=== PATIENT | female | born 1980 | race Caucasian/White ===

== ENCOUNTER 2017-07-07 15:05 | Emergency (ER) | payer OTHER ==
[~2017-07-07] VITALS: Ht 157.5 cm; Wt 117.9 kg
[2017-07-07] MEDS ORDERED: SYNTHROID50 MCG PO (15:33)
[2017-07-07] MEDS ORDERED: ZANTAC300 MG PO (15:33)
[2017-07-07] MEDS ORDERED: SINGULAIR10 MG PO (15:33)
== END 2017-07-07 20:18 | disposition home or self-care (01) ==
LOC: ER 15:05
DX: J45.998 Other asthma (principal)

== ENCOUNTER 2017-09-02 21:37 | Emergency (ER) | payer OTHER ==
[~2017-09-02] VITALS: Ht 157.5 cm; Wt 117.9 kg
[~2017-09-02 21:37] MED LIST: SINGULAIR10 MG PO; SYNTHROID50 MCG PO; ZANTAC300 MG PO
== END 2017-09-02 22:52 | disposition home or self-care (01) ==
LOC: ER 21:37
DX: H10.32 Unspecified acute conjunctivitis, left eye (principal)

== ENCOUNTER 2018-01-07 22:22 | Emergency (ER) | payer OTHER ==
[~2018-01-07] VITALS: Ht 157.5 cm; Wt 127.0 kg
== END 2018-01-07 22:58 | disposition home or self-care (01) ==
LOC: ER 22:22
DX: M54.5 Low back pain (principal)

== ENCOUNTER 2019-05-19 14:27 | Emergency (ER) | payer OTHER ==
[~2019-05-19] VITALS: Ht 157.5 cm; Wt 120.7 kg
[2019-05-19] MEDS ORDERED: DOLOGEN CAPLET1 EACH PO (19:07)
[2019-05-19] MEDS ORDERED: TUSNEL LIQUID178 ML PO (19:07)
[2019-05-19] MEDS ORDERED: OSEL75CA PO (19:07)
== END 2019-05-19 19:15 | disposition home or self-care (01) ==
LOC: ER 14:27
DX: J11.1 Influenza due to unidentified influenza virus with other respiratory manifestations (principal); B34.9 Viral infection, unspecified

== ENCOUNTER 2022-01-03 07:47 | Emergency (ER) | payer OTHER ==
[~2022-01-03] VITALS: Ht 157.5 cm; Wt 123.4 kg
[~2022-01-03 07:47] MED LIST changes: +DOLOGEN CAPLET1 EACH PO; +OSEL75CA PO; +TUSNEL LIQUID178 ML PO
[2022-01-03] MEDS ORDERED: SINUS RINSE ST1 EACH NS (11:11)
[2022-01-03] MEDS ORDERED: FLONASE ALLERG9.9 ML NASAL (11:11)
== END 2022-01-03 11:21 | disposition home or self-care (01) ==
LOC: ER 07:47
DX: J00 Acute nasopharyngitis [common cold] (principal); Z20.822 Contact with and (suspected) exposure to COVID-19; Z91.013 Allergy to seafood

== ENCOUNTER 2022-03-09 06:49 | Outpatient (CLI) | payer OTHER ==
[~2022-03-09 06:49] MED LIST changes: +FLONASE ALLERG9.9 ML NASAL; +SINUS RINSE ST1 EACH NS
== END 2022-03-09 06:50 | disposition home or self-care (01) ==
LOC: LAB 06:49
DX: D50.0 Iron deficiency anemia secondary to blood loss (chronic) (principal); D50.8 Other iron deficiency anemias; N93.9 Abnormal uterine and vaginal bleeding, unspecified

== ENCOUNTER 2023-01-16 08:26 | Outpatient (CLI) | payer OTHER | END 2023-01-16 08:29 | disposition home or self-care (01) | LOC: MAMO-SONO 08:26 | PROVIDERS: ATTEND Obstetrics & Gynecology | DX: N60.11 Diffuse cystic mastopathy of right breast (principal); N60.12 Diffuse cystic mastopathy of left breast; R10.2 Pelvic and perineal pain; N93.8 Other specified abnormal uterine and vaginal bleeding; Z12.31 Encounter for screening mammogram for malignant neoplasm of breast ==

== ENCOUNTER 2023-05-17 06:06 | Outpatient (CLI) | payer OTHER ==
[~2023-05-17 06:06] MED LIST changes: +OMEPRAZOLE20 MG
[2023-05-17 07:59] LABS: HEMOGLOBIN 9.1 g/dL (12.0-15.00); MEAN CORPUSCULAR HEMOGLOBIN 20.2 pg (27.00-32.0); MEAN CORPUSCULAR HGB CONC 31.3 g/dl (32.0-36.0); PLATELET COUNT 398 K/uL (150-450); RED BLOOD COUNT 4.49 M/uL (4.00-6.00); RED CELL DISTRIBUTION WIDTH 17.7 % (11.5-14.5)
[2023-05-17 08:09] LABS: MEAN CELL VOLUME 64.6 fL (80.00-100.00)
[2023-05-17 08:54] LABS: ALBUMIN 3.4 gm/dL (3.4-5.0); BILIRUBIN TOTAL 0.5 mg/dL (0.3-1.2); CALCIUM 9.1 mg/dL (8.5-10.1); CHOL HDL RATIO 3.8 (0-5.0); CREATININE SERUM 0.65 mg/dL (0.55-1.02); GFR 99.96; GLOBULINA 3.7 G/DL (2.4-3.5); POTASSIUM 4.15 mEq/L (3.5-5.1); TOTAL PROTEIN 7.1 gm/dL (6.4-8.2); TSH 4.61 uIU/mL (0.358-3.74)
[2023-05-17 08:58] LABS: FERRITIN 3.7 NG/ML (8-252)
[2023-05-17 09:33] LABS: PH,URINE 5.5 (5.0-8.0); URINE APPEARANCE Clear; URINE BILIRRUBIN Negative (NEGATIVE); URINE BLOOD Large; URINE COLOR Yellow; URINE GLUCOSE Negative (NEGATIVE); URINE LEUKOCYTE Negative; URINE NITRATE Negative; URINE PROTEIN Negative (NEGATIVE); URINE UROBILINOGEN 0.2 E.U./dl
[2023-05-17 09:38] LABS: URINE BACTERIA 115.8 uL (0.0-1933); URINE RBC 236.2 uL (0.0-20.8); URINE WBC 4.6 uL (0.0-23.2)
== END 2023-05-17 13:36 | disposition home or self-care (01) ==
LOC: LAB 06:06
DX: D64.9 Anemia, unspecified (principal); R53.1 Weakness; E03.9 Hypothyroidism, unspecified; E78.9 Disorder of lipoprotein metabolism, unspecified; N39.0 Urinary tract infection, site not specified; I10 Essential (primary) hypertension

== ENCOUNTER 2023-05-22 08:56 | Emergency (ER) | payer OTHER ==
[~2023-05-22] VITALS: Ht 157.5 cm; Wt 122.5 kg
[2023-05-22 10:35] LABS: HEMATOCRIT 28.6 % (36.0-45.00); MEAN CORPUSCULAR HEMOGLOBIN 20.5 pg (27.00-32.0); MEAN CORPUSCULAR HGB CONC 31.4 g/dl (32.0-36.0); PLATELET COUNT 404 K/uL (150-450); RED BLOOD COUNT 4.37 M/uL (4.00-6.00)
[2023-05-22 10:36] LABS: MEAN CELL VOLUME 65.4 fL (80.00-100.00)
== END 2023-05-22 12:48 | disposition home or self-care (01) ==
LOC: ER 08:56
PROVIDERS: General Practice
DX: J00 Acute nasopharyngitis [common cold] (principal); Z20.822 Contact with and (suspected) exposure to COVID-19

== ENCOUNTER 2023-05-29 06:53 | Emergency (ER) | payer OTHER ==
[~2023-05-29] VITALS: Ht 157.5 cm; Wt 123.4 kg
[2023-05-29] MEDS ORDERED: 0.9 % SODIUM CHLORIDE 1,000 ML IV STA (08:39)
[2023-05-29 09:18] LABS: PH,URINE 5.5 (5.0-8.0); URINE APPEARANCE Clear; URINE BILIRRUBIN Negative (NEGATIVE); URINE BLOOD Negative; URINE COLOR Yellow; URINE GLUCOSE Negative (NEGATIVE); URINE LEUKOCYTE Negative; URINE NITRATE Negative; URINE PROTEIN Negative (NEGATIVE); URINE UROBILINOGEN 0.2 E.U./dl
[2023-05-29 09:23] LABS: URINE BACTERIA 715.6 uL (0.0-1933); URINE EPITHELIAL CELLS 23.7 uL (0.0-38.8); URINE RBC 4.3 uL (0.0-20.8); URINE WBC 5.8 uL (0.0-23.2)
[2023-05-29 09:46] LABS: HEMOGLOBIN 10.5 g/dL (12.0-15.00); MEAN CORPUSCULAR HEMOGLOBIN 20.3 pg (27.00-32.0); MEAN CORPUSCULAR HGB CONC 30.9 g/dl (32.0-36.0); PLATELET COUNT 385 K/uL (150-450); RED BLOOD COUNT 5.19 M/uL (4.00-6.00); RED CELL DISTRIBUTION WIDTH 18.2 % (11.5-14.5)
[2023-05-29 09:50] LABS: MEAN CELL VOLUME 65.6 fL (80.00-100.00)
[2023-05-29 10:18] LABS: CALCIUM 9.4 mg/dL (8.5-10.1); CREATININE SERUM 0.66 mg/dL (0.55-1.02); GFR 98.21; POTASSIUM 4.42 mEq/L (3.5-5.1)
== END 2023-05-29 13:41 | disposition home or self-care (01) ==
LOC: ER 06:53
PROVIDERS: General Practice
DX: K52.89 Other specified noninfective gastroenteritis and colitis (principal); E03.9 Hypothyroidism, unspecified; Z91.013 Allergy to seafood

== ENCOUNTER 2023-07-03 10:05 | Outpatient (CLI) | payer OTHER | END 2023-07-03 11:02 | disposition home or self-care (01) | LOC: SONOGRAMA 10:05 | DX: R10.2 Pelvic and perineal pain (principal); D25.9 Leiomyoma of uterus, unspecified ==

== ENCOUNTER 2023-10-09 05:30 | Day surgery (SDC) | payer OTHER ==
[2023-10-02 08:18] LABS: HEMATOCRIT 38.1 % (36.0-45.00); HEMOGLOBIN 12.6 g/dL (12.0-15.00); MEAN CELL VOLUME 81.2 fL (80.00-100.00); MEAN CORPUSCULAR HEMOGLOBIN 26.9 pg (27.00-32.0); MEAN CORPUSCULAR HGB CONC 33.2 g/dl (32.0-36.0); PLATELET COUNT 280 K/uL (150-450); RED BLOOD COUNT 4.69 M/uL (4.00-6.00)
[2023-10-02 08:47] LABS: RED CELL DISTRIBUTION WIDTH 16.2 % (11.5-14.5)
[2023-10-02 09:10] LABS: INR 1.01; PARTIAL THROMBOPLASTIN TIME 27.7 SECONDS (22.0-34.0); PROTHROMBIN TIME 10.6 SECONDS (9.0-11.5)
[2023-10-02 09:22] LABS: URINE APPEARANCE Cloudy; URINE BILIRRUBIN Negative (NEGATIVE); URINE BLOOD Trace; URINE COLOR Yellow; URINE GLUCOSE Negative (NEGATIVE); URINE LEUKOCYTE Negative; URINE NITRATE Negative; URINE PROTEIN Trace (NEGATIVE); URINE UROBILINOGEN 0.2 E.U./dl
[2023-10-02 09:27] LABS: URINE BACTERIA 4470.2 uL (0.0-1933); URINE EPITHELIAL CELLS 110.4 uL (0.0-38.8)
[2023-10-02 09:27] LABS: ALBUMIN 3.5 gm/dL (3.4-5.0); BILIRUBIN TOTAL 0.62 mg/dL (0.3-1.2); CALCIUM 8.8 mg/dL (8.5-10.1); CREATININE SERUM 0.61 mg/dL (0.55-1.02); GFR 107.56; GLOBULINA 3.6 G/DL (2.4-3.5); POTASSIUM 4.25 mEq/L (3.5-5.1); TOTAL PROTEIN 7.1 gm/dL (6.4-8.2)
[~2023-10-09] VITALS: Ht 157.5 cm; Wt 127.0 kg
[2023-10-09] MEDS ORDERED: POVIDONE-IODINE 118 ML BOTT TOP ONE (08:30)
[2023-10-09] MEDS ORDERED: CEFAZOLIN SODIUM 1,000 MG VIAL IV ONE (08:30)
[2023-10-09] MEDS ORDERED: KETOROLAC TROMETHAMINE 30 MG VIAL IV ONE (08:45)
[2023-10-09] MEDS ORDERED: RINGERS SOLUTION,LACTATED 1,000 ML IV SCH (08:45)
[2023-10-09] MEDS ORDERED: MORPHINE SULFATE 4 MG/ML VIAL IV PRN (09:00)
[2023-10-09] MEDS ORDERED: FAMOTIDINE/PF 20 MG/2 ML VIAL IV ONE (09:00)
[2023-10-09] MEDS ORDERED: ONDANSETRON HCL 2 MG/ML VIAL IV PRN (09:00)
== END 2023-10-09 12:30 | disposition home or self-care (01) ==
LOC: CIR.AMB 05:30
PROVIDERS: ATTEND General Practice
DX: N85.00 Endometrial hyperplasia, unspecified (principal); N93.8 Other specified abnormal uterine and vaginal bleeding; Z91.013 Allergy to seafood; J45.909 Unspecified asthma, uncomplicated; E03.9 Hypothyroidism, unspecified; D64.9 Anemia, unspecified; K29.70 Gastritis, unspecified, without bleeding

== ENCOUNTER 2023-10-11 10:42 | Emergency (ER) | payer OTHER ==
[~2023-10-11] VITALS: Ht 157.5 cm; Wt 127.0 kg
[2023-10-11] MEDS ORDERED: ACID REDUCER20 M1 (10:48)
[2023-10-11] MEDS ORDERED: DEXAMETHASONE SODIUM PHOSPHATE 4 MG/ML VIAL IM STA (11:18)
[2023-10-11] MEDS ORDERED: ACETAMINOPHEN 500 MG GEL..CAP PO STA (11:18)
[2023-10-11] MEDS ORDERED: KETOROLAC TROMETHAMINE 15 MG VIAL IM STA (11:18)
[2023-10-11] MEDS ORDERED: DIPHENHYDRAMINE HCL 50 MG/ML VIAL 1ML IM STA (11:18)
[2023-10-11] MEDS ORDERED: 0.9 % SODIUM CHLORIDE 500 ML IV STA (11:19)
[2023-10-11] MEDS ORDERED: KETOROLAC TROMETHAMINE 30 MG VIAL ONE (11:41)
[2023-10-11] MEDS ORDERED: ACETAMINOPHEN 500 MG GEL..CAP PO ONE (11:42)
[2023-10-11] MEDS ORDERED: DIPHENHYDRAMINE HCL 50 MG/ML VIAL 1ML ONE (11:42)
[2023-10-11] MEDS ORDERED: DEXAMETHASONE SODIUM PHOSPHATE 4 MG/ML VIAL ONE ×2 (11:42→12:11)
[2023-10-11 12:21] LABS: HEMATOCRIT 38.6 % (36.0-45.00); HEMOGLOBIN 12.7 g/dL (12.0-15.00); MEAN CELL VOLUME 81.6 fL (80.00-100.00); MEAN CORPUSCULAR HEMOGLOBIN 26.9 pg (27.00-32.0); PLATELET COUNT 275 K/uL (150-450); RED BLOOD COUNT 4.74 M/uL (4.00-6.00); RED CELL DISTRIBUTION WIDTH 15.7 % (11.5-14.5)
[2023-10-11 12:38] LABS: CALCIUM 9.1 mg/dL (8.5-10.1); CREATININE SERUM 0.7 mg/dL (0.55-1.02); GFR 91.76; POTASSIUM 3.62 mEq/L (3.5-5.1)
[2023-10-11 13:04] LABS: PH,URINE 7.5 (5.0-8.0); URINE APPEARANCE Clear; URINE BILIRRUBIN Negative (NEGATIVE); URINE BLOOD Negative; URINE COLOR Yellow; URINE GLUCOSE Negative (NEGATIVE); URINE LEUKOCYTE Negative; URINE NITRATE Negative; URINE PROTEIN Negative (NEGATIVE); URINE UROBILINOGEN 0.2 E.U./dl
[2023-10-11 13:05] LABS: URINE BACTERIA 350.2 uL (0.0-1933); URINE EPITHELIAL CELLS 9.7 uL (0.0-38.8); URINE RBC 3.2 uL (0.0-20.8); URINE WBC 7.4 uL (0.0-23.2)
[2023-10-11] MEDS ORDERED: MEDROLPACK PO (13:15)
[2023-10-11] MEDS ORDERED: CYCLOBENZAPRINE5 MG PO (13:15)
[2023-10-11] MEDS ORDERED: DICLOFENAC POTA50 MG PO (13:15)
[2023-10-11] MEDS ORDERED: 8 HOUR650 MG PO (13:15)
== END 2023-10-11 14:53 | disposition home or self-care (01) ==
LOC: ER 10:43
PROVIDERS: General Practice
DX: R51.9 Headache, unspecified (principal); E03.9 Hypothyroidism, unspecified; Z87.09 Personal history of other diseases of the respiratory system; Z91.013 Allergy to seafood

== ENCOUNTER 2023-11-13 13:22 | Emergency (ER) | payer OTHER ==
[~2023-11-13] VITALS: Ht 157.5 cm; Wt 127.0 kg
[~2023-11-13 13:22] MED LIST changes: +8 HOUR650 MG PO; +ACID REDUCER20 M1; +CYCLOBENZAPRINE5 MG PO; +DICLOFENAC POTA50 MG PO; +MEDROLPACK PO
[2023-11-13] MEDS ORDERED: KETOROLAC TROMETHAMINE 60 MG VIAL IM ONE ×2 (14:30)
[2023-11-13 14:50] LABS: HEMATOCRIT 37.2 % (36.0-45.00); HEMOGLOBIN 12.3 g/dL (12.0-15.00); MEAN CELL VOLUME 81.5 fL (80.00-100.00); MEAN CORPUSCULAR HGB CONC 33.1 g/dl (32.0-36.0); PLATELET COUNT 336 K/uL (150-450); RED BLOOD COUNT 4.57 M/uL (4.00-6.00); RED CELL DISTRIBUTION WIDTH 15.9 % (11.5-14.5)
[2023-11-13 15:09] LABS: CALCIUM 9.6 mg/dL (8.5-10.1); CREATININE SERUM 0.86 mg/dL (0.55-1.02); GFR 72.02; POTASSIUM 4.19 mEq/L (3.5-5.1)
== END 2023-11-13 21:34 | disposition home or self-care (01) ==
LOC: ER 13:23
PROVIDERS: General Practice
DX: N93.9 Abnormal uterine and vaginal bleeding, unspecified (principal); E03.8 Other specified hypothyroidism; Z91.013 Allergy to seafood

== ENCOUNTER → 2024-01-07 06:14 | Outpatient (CLI) | payer OTHER ==
[2024-01-07 07:00] LABS: HEMATOCRIT 32.6 % (36.0-45.00); HEMOGLOBIN 10.9 g/dL (12.0-15.00); MEAN CELL VOLUME 79.2 fL (80.00-100.00); MEAN CORPUSCULAR HEMOGLOBIN 26.4 pg (27.00-32.0); MEAN CORPUSCULAR HGB CONC 33.3 g/dl (32.0-36.0); PLATELET COUNT 331 K/uL (150-450); RED BLOOD COUNT 4.12 M/uL (4.00-6.00); RED CELL DISTRIBUTION WIDTH 14.6 % (11.5-14.5)
[2024-01-07 08:12] LABS: FERRITIN 5.8 NG/ML (8-252)
== END | disposition home or self-care (01) ==
LOC: LAB 06:14
PROVIDERS: ATTEND Obstetrics & Gynecology
DX: D64.9 Anemia, unspecified (principal); E03.8 Other specified hypothyroidism; N95.1 Menopausal and female climacteric states; I10 Essential (primary) hypertension; C51.9 Malignant neoplasm of vulva, unspecified; N30.00 Acute cystitis without hematuria; E83.51 Hypocalcemia; A64 Unspecified sexually transmitted disease; N39.0 Urinary tract infection, site not specified; R97.8 Other abnormal tumor markers; R79.89 Other specified abnormal findings of blood chemistry; E55.9 Vitamin D deficiency, unspecified; A60.9 Anogenital herpesviral infection, unspecified; Z12.11 Encounter for screening for malignant neoplasm of colon

== ENCOUNTER 2024-01-14 14:11 | Outpatient (CLI) | payer OTHER | END 2024-01-14 14:14 | disposition home or self-care (01) | LOC: SONOGRAMA 14:11 | PROVIDERS: ATTEND Obstetrics & Gynecology | DX: R10.2 Pelvic and perineal pain (principal) ==

== ENCOUNTER 2024-01-31 09:00 | Inpatient (IN) | payer OTHER ==
[~2024-01-31] VITALS: Ht 157.5 cm; Wt 129.7 kg
[2024-01-31 07:15] LABS: HEMATOCRIT 36.5 % (36.0-45.00); HEMOGLOBIN 11.9 g/dL (12.0-15.00); MEAN CELL VOLUME 78.9 fL (80.00-100.00); MEAN CORPUSCULAR HEMOGLOBIN 25.9 pg (27.00-32.0); MEAN CORPUSCULAR HGB CONC 32.8 g/dl (32.0-36.0); PLATELET COUNT 323 K/uL (150-450); RED BLOOD COUNT 4.62 M/uL (4.00-6.00); RED CELL DISTRIBUTION WIDTH 15.6 % (11.5-14.5)
[2024-01-31 07:22] VITALS: BP 145/81
[2024-01-31 07:58] LABS: ALBUMIN 3.6 gm/dL (3.4-5.0); BILIRUBIN TOTAL 0.39 mg/dL (0.3-1.2); CALCIUM 9.3 mg/dL (8.5-10.1); CREATININE SERUM 0.76 mg/dL (0.55-1.02); GFR 83.06; GLOBULINA 3.7 G/DL (2.4-3.5); POTASSIUM 3.91 mEq/L (3.5-5.1); TOTAL PROTEIN 7.3 gm/dL (6.4-8.2)
[2024-01-31 08:26] LABS: INR 1.02; PARTIAL THROMBOPLASTIN TIME 26.8 SECONDS (22.0-34.0); PROTHROMBIN TIME 11.1 SECONDS (9.0-11.5)
[2024-01-31 08:53] LABS: RH POSITIVE
[2024-02-04] MEDS ORDERED: CEFAZOLIN SODIUM 1,000 MG VIAL IV ONE (13:30)
[2024-02-04] MEDS ORDERED: SODIUM CHLORIDE 0.45 % 1,000 ML IV SCH (15:30)
[2024-02-04] MEDS ORDERED: ONDANSETRON HCL 2 MG/ML VIAL IV PRN (15:30)
[2024-02-04] MEDS ORDERED: MORPHINE SULFATE 2 MG/ML CARTRIDGE IV PRN (15:30)
[2024-02-04] MEDS ORDERED: MORPHINE SULFATE 4 MG/ML CARTRIDGE IV PRN (15:30)
[2024-02-04] MEDS ORDERED: MORPHINE SULFATE 4 MG/ML VIAL IV ONE (16:15)
[2024-02-04 17:28] VITALS: BP 145/81
[2024-02-04] MEDS ORDERED: KETOROLAC TROMETHAMINE 30 MG VIAL IV SCH (19:00)
[2024-02-04] MEDS ORDERED: FAMOTIDINE/PF 20 MG/2 ML VIAL IV PUSH SCH (21:00)
[2024-02-05] VITALS: BP 105/70
[2024-02-05 07:16] LABS: HEMATOCRIT 31.5 % (36.0-45.00); HEMOGLOBIN 10.2 g/dL (12.0-15.00); MEAN CELL VOLUME 81.3 fL (80.00-100.00); MEAN CORPUSCULAR HEMOGLOBIN 26.4 pg (27.00-32.0); MEAN CORPUSCULAR HGB CONC 32.5 g/dl (32.0-36.0); PLATELET COUNT 253 K/uL (150-450); RED BLOOD COUNT 3.87 M/uL (4.00-6.00); RED CELL DISTRIBUTION WIDTH 16.2 % (11.5-14.5)
[2024-02-05 08:50] VITALS: BP 131/62
[2024-02-05] MEDS ORDERED: ENOXAPARIN SODIUM 40 MG/0.4 ML SYRINGE SUBCUTANEO SCH (09:00)
[2024-02-05] MEDS ORDERED: ACETAMINOPHEN 500 MG GEL..CAP PO PRN (11:00)
[2024-02-05] MEDS ORDERED: CLONAZEPAM 0.5 MG TABLET PO SCH (11:00)
[2024-02-05 13:23] VITALS: BP 127/70
[2024-02-05 16:00] VITALS: BP 132/80
[2024-02-05] MEDS ORDERED: IRON/V.C/V.B12/FOLIC A/VIT. E 1 CAPL CAPLET PO NR (16:01)
[2024-02-05] MEDS ORDERED: IBUprofen 800 MG TABLET PO SCH (17:15)
[2024-02-05] MEDS ORDERED: OxyCODONE HCL/APAP UD (PERCOCET) PO PRN (17:15)
[2024-02-05] MEDS ORDERED: PHENOL 177 ML BOTTLE MM SCH (18:45)
[2024-02-06 00:54] VITALS: BP 124/81
[2024-02-06 08:21] VITALS: BP 132/83
[2024-02-06] MEDS ORDERED: IRON/V.C/V.B12/FOLIC A/VIT. E 1 CAPL CAPLET PO SCH (09:00)
[2024-02-06] MEDS ORDERED: PHENOL 177 ML BOTTLE MM SCH (09:00)
[2024-02-06 13:39] VITALS: BP 140/80
[2024-02-06 16:00] VITALS: BP 124/78
== END 2024-02-06 18:20 | disposition home or self-care (01) | DRG 743 ==
LOC: O/R 02-04 06:21 → OB/GYN 02-04 06:21 → SURH 02-04 09:00 → OB/GYN 02-04 15:49
PROVIDERS: ADMIT Obstetrics & Gynecology; ATTEND Obstetrics & Gynecology
PROC: 0UT70ZZ Resection of Bilateral Fallopian Tubes, Open Approach (ICD-10-PCS; 2024-02-04)
PROC: 0UT90ZZ Resection of Uterus, Open Approach (ICD-10-PCS; principal; 2024-02-04 09:15)
DX: D25.1 Intramural leiomyoma of uterus (principal); D25.2 Subserosal leiomyoma of uterus; N72 Inflammatory disease of cervix uteri; Z20.822 Contact with and (suspected) exposure to COVID-19; D50.0 Iron deficiency anemia secondary to blood loss (chronic)

== ENCOUNTER 2024-03-11 06:58 | Outpatient (CLI) | payer OTHER ==
[2024-03-11 07:53] LABS: HEMATOCRIT 36.5 % (36.0-45.00); HEMOGLOBIN 11.9 g/dL (12.0-15.00); MEAN CELL VOLUME 78.7 fL (80.00-100.00); MEAN CORPUSCULAR HEMOGLOBIN 25.7 pg (27.00-32.0); MEAN CORPUSCULAR HGB CONC 32.6 g/dl (32.0-36.0); PLATELET COUNT 304 K/uL (150-450); RED BLOOD COUNT 4.63 M/uL (4.00-6.00); RED CELL DISTRIBUTION WIDTH 16.9 % (11.5-14.5)
[2024-03-11 09:00] LABS: T4 FREE 0.88 NG/ML (0.76-1.46); TSH 4.35 uIU/mL (0.358-3.74)
[2024-03-12 06:04] LABS: ESTRADIOL SERUM 88.9 pg/mL (.); FOLLICLE STIMULATING HORMONE 6.2 mIU/mL (.)
== END 2024-03-11 07:45 | disposition home or self-care (01) ==
LOC: LAB 06:58
PROVIDERS: ATTEND Obstetrics & Gynecology
DX: D64.9 Anemia, unspecified (principal); Z12.11 Encounter for screening for malignant neoplasm of colon; E03.8 Other specified hypothyroidism; N95.1 Menopausal and female climacteric states; I10 Essential (primary) hypertension; C51.9 Malignant neoplasm of vulva, unspecified; N30.00 Acute cystitis without hematuria; E83.51 Hypocalcemia; A64 Unspecified sexually transmitted disease; N39.0 Urinary tract infection, site not specified; R97.8 Other abnormal tumor markers; E55.9 Vitamin D deficiency, unspecified; A60.9 Anogenital herpesviral infection, unspecified

== ENCOUNTER 2024-04-23 12:18 | Outpatient (CLI) | payer OTHER | END 2024-04-23 12:21 | disposition home or self-care (01) | LOC: MAMO-SONO 12:18 | PROVIDERS: ATTEND Obstetrics & Gynecology | DX: N64.89 Other specified disorders of breast (principal) ==

== ENCOUNTER 2024-04-29 14:44 | Outpatient (CLI) | payer OTHER | END 2024-04-29 14:49 | disposition home or self-care (01) | LOC: SONOGRAMA 14:44 | DX: E03.8 Other specified hypothyroidism (principal) ==

== ENCOUNTER 2024-05-21 07:57 | Outpatient (CLI) | payer OTHER ==
[2024-05-21 08:35] LABS: HEMATOCRIT 37.2 % (36.0-45.00); HEMOGLOBIN 12.4 g/dL (12.0-15.00); MEAN CELL VOLUME 76.4 fL (80.00-100.00); MEAN CORPUSCULAR HEMOGLOBIN 25.4 pg (27.00-32.0); MEAN CORPUSCULAR HGB CONC 33.3 g/dl (32.0-36.0); PLATELET COUNT 319 K/uL (150-450); RED BLOOD COUNT 4.87 M/uL (4.00-6.00); RED CELL DISTRIBUTION WIDTH 16.6 % (11.5-14.5)
== END 2024-05-21 08:37 | disposition home or self-care (01) ==
LOC: LAB 07:57
DX: E03.9 Hypothyroidism, unspecified (principal); D64.9 Anemia, unspecified

== ENCOUNTER 2024-06-28 20:47 | Emergency (ER) | payer OTHER ==
[~2024-06-28] VITALS: Ht 157.5 cm; Wt 128.4 kg
[2024-06-28] MEDS ORDERED: SINGULAIR10 MG PO (21:33)
[2024-06-28] MEDS ORDERED: IPRATROPIUM/ALBUTEROL SULFATE 3 ML AMPUL.NEB IH SCH (22:30)
[2024-06-28] MEDS ORDERED: GUAIFENESIN/DEXTROMETHORPHAN 100MG/10ML BLIST.PACK PO ONE ×2 (22:30→22:35)
[2024-06-28] MEDS ORDERED: ACETAMINOPHEN 500 MG GEL..CAP PO ONE ×2 (22:30→22:35)
[2024-06-28 23:19] LABS: HEMOGLOBIN 12.3 g/dL (12.0-15.00); MEAN CELL VOLUME 79.3 fL (80.00-100.00); MEAN CORPUSCULAR HEMOGLOBIN 25.7 pg (27.00-32.0); MEAN CORPUSCULAR HGB CONC 32.4 g/dl (32.0-36.0); PLATELET COUNT 275 K/uL (150-450); RED BLOOD COUNT 4.79 M/uL (4.00-6.00); RED CELL DISTRIBUTION WIDTH 17.9 % (11.5-14.5)
[2024-06-28] MEDS ORDERED: ZITHROMAX TRI-500 MG PO (23:35)
[2024-06-28] MEDS ORDERED: GILTUSS COUGH-118 M1 PO (23:35)
[2024-06-28] MEDS ORDERED: ACETAMINOPHEN500 M1 PO (23:35)
[2024-06-28] MEDS ORDERED: IPRATROPIUM/ALBUTEROL SULFATE 3 ML AMPUL.NEB IH ONE (23:54)
== END 2024-06-29 01:07 | disposition home or self-care (01) ==
LOC: ER 20:48
PROVIDERS: Preventive Medicine Public Health & General Preventive Medicine
DX: R53.81 Other malaise (principal); J06.9 Acute upper respiratory infection, unspecified; Z20.822 Contact with and (suspected) exposure to COVID-19; E03.8 Other specified hypothyroidism; Z91.013 Allergy to seafood

== ENCOUNTER → 2024-09-23 | Outpatient (CLI) | payer OTHER ==
[~2024-09-23] MED LIST changes: +ACETAMINOPHEN500 M1 PO; +GILTUSS COUGH-118 M1 PO; +ZITHROMAX TRI-500 MG PO
[2024-09-23 08:15] LABS: ALT/SGPT 23.0 U/L (12-78); AST/SGOT 19.0 U/L (15-37); BILIRUBIN TOTAL 0.46 mg/dL (0.3-1.2); BUN CREA RATIO 24.0 (7.0-25.0); CREATININE SERUM 0.72 mg/dL (0.55-1.02); GFR 88.41; GLOBULINA 3.9 G/DL (2.4-3.5); GLUCOSE FASTING 96.0 mg/dL (65-100); OSMOLALITY SERUM 283.0 MOSM/KG (275-295); T4 FREE 1.01 NG/ML (0.76-1.46); TSH 1.83 uIU/mL (0.358-3.74)
== END | disposition home or self-care (01) ==
LOC: LAB 07:00
PROVIDERS: ATTEND Obstetrics & Gynecology
DX: E03.8 Other specified hypothyroidism (principal); D64.9 Anemia, unspecified; Z12.11 Encounter for screening for malignant neoplasm of colon; N95.1 Menopausal and female climacteric states; I10 Essential (primary) hypertension; C51.9 Malignant neoplasm of vulva, unspecified; A64 Unspecified sexually transmitted disease; N39.0 Urinary tract infection, site not specified; R79.89 Other specified abnormal findings of blood chemistry; E55.9 Vitamin D deficiency, unspecified; A60.9 Anogenital herpesviral infection, unspecified

== ENCOUNTER 2024-09-25 08:37 | Outpatient (CLI) | payer OTHER | END 2024-09-25 08:46 | disposition home or self-care (01) | LOC: TOM 08:37 | PROVIDERS: ATTEND Obstetrics & Gynecology | DX: R10.2 Pelvic and perineal pain (principal); R10.9 Unspecified abdominal pain ==

== ENCOUNTER → 2025-01-09 | Outpatient (CLI) | payer OTHER | END | disposition home or self-care (01) | LOC: RAD 10:44 | DX: M25.562 Pain in left knee (principal); M54.50 Low back pain, unspecified ==

== ENCOUNTER 2025-02-24 18:27 | Emergency (ER) | payer OTHER ==
[~2025-02-24] VITALS: Ht 157.5 cm; Wt 126.1 kg
[2025-02-24 18:57] VITALS: BP 131/80; O2SAT 100
[2025-02-24] MEDS ORDERED: PROTONIX20 MG (18:57)
[2025-02-24] MEDS ORDERED: ZEPBOUND2.5 MG/0.5 (18:57)
[2025-02-24] MEDS ORDERED: DEXAMETHASONE SODIUM PHOSPHATE 4 MG/ML VIAL IV STA (19:15)
[2025-02-24] MEDS ORDERED: ORPHENADRINE CITRATE 30 MG/ML AMPUL IM STA (19:16)
[2025-02-24] MEDS ORDERED: KETOROLAC TROMETHAMINE 30 MG VIAL IM STA (19:16)
[2025-02-24] MEDS ORDERED: KETOROLAC TROMETHAMINE 30 MG VIAL ONE (20:29)
[2025-02-24] MEDS ORDERED: ORPHENADRINE CITRATE 30 MG/ML AMPUL ONE (20:29)
[2025-02-24] MEDS ORDERED: DEXAMETHASONE SODIUM PHOSPHATE 4 MG/ML VIAL ONE (20:29)
[2025-02-24 20:59] LABS: BASO % 0.4 % (0.1-1.2); EOS # 0.17 (0.04-0.54); EOS % 1.8 % (0.7-7.0); LYMPH # 3.67 (1.18-3.74); LYMPH % 39.8 % (19.3-53.1); MEAN PLATELET VOLUME 9.50 fl (9.4-12.4); MONO # 0.66 (0.24-0.82); MONO % 7.2 % (4.7-12.5); NEUT # 4.67 (1.56-6.13); NEUT % 50.6 % (34.0-71.1); RED CELL DISTRIBUTION WIDTH 14.1 % (11.6-14.4)
[2025-02-24 21:18] LABS: ERYTHROCYTE SEDIMENTATION RATE 57 mm/hr (0-20); INR 1.01
[2025-02-24 21:22] LABS: URINE APPEARANCE Cloudy; URINE BILIRRUBIN Negative (NEGATIVE); URINE COLOR Yellow; URINE GLUCOSE Negative (NEGATIVE); URINE KETONE Negative (NEGATIVE); URINE LEUKOCYTE Negative; URINE NITRATE Negative; URINE PROTEIN Negative (NEGATIVE); URINE UROBILINOGEN 0.2 E.U./dl
[2025-02-24 21:23] LABS: URINE EPITHELIAL CELLS 78.9 uL (0.0-38.8); URINE RBC 12.1 uL (0.0-20.8); URINE WBC 42.9 uL (0.0-23.2)
[2025-02-24 21:26] LABS: ALT/SGPT 27.0 U/L (12-78); AST/SGOT 21.0 U/L (15-37); BILIRUBIN TOTAL 0.28 mg/dL (0.3-1.2); BUN CREA RATIO 19.0 (7.0-25.0); CREATININE SERUM 0.88 mg/dL (0.55-1.02); GFR 69.8; GLOBULINA 3.9 G/DL (2.4-3.5); GLUCOSE FASTING 97.0 mg/dL (65-100); OSMOLALITY SERUM 279.0 MOSM/KG (275-295)
[2025-02-24 21:29] LABS: URINE BLOOD Trace; URINE CAST 1.02 uL (0.0-1.40)
[2025-02-25] MEDS ORDERED: CEFTRIAXONE SODIUM 1,000 MG VIAL IM STA (00:01)
[2025-02-25] MEDS ORDERED: IBU600 MG PO (00:11)
[2025-02-25] MEDS ORDERED: NORFLEX100MG PO (00:11)
[2025-02-25] MEDS ORDERED: CEFTRIAXONE SODIUM 1,000 MG VIAL ONE (00:14)
== END 2025-02-25 02:02 | disposition home or self-care (01) ==
LOC: ER 18:28
PROVIDERS: Physician Assistant Medical
DX: M94.0 Chondrocostal junction syndrome [Tietze] (principal); R07.81 Pleurodynia; N39.0 Urinary tract infection, site not specified; M54.59 Other low back pain; R07.89 Other chest pain; Z91.013 Allergy to seafood